=== PATIENT | male | born 1970 | race Caucasian/White ===

== ENCOUNTER → 2020-07-24 | Outpatient (CLI) | payer BC ==
[~2020-07-24] MED LIST: NAPR1TAB21 PO
[2020-07-24 08:43] LABS: BASOPHILS % (AUTO) 1 % (0-1); EOSINOPHILS % (AUTO) 4 % (1-7); LYMPHOCYTES % (AUTO) 39 % (22-44); MD NO; MEAN CORPUSCULAR HEMOGLOBIN 31.1 pg (27.5-34.5); MEAN PLATELET VOLUME 8.2 fL (7.4-10.4); MONOCYTES % (AUTO) 6 % (2-9); NEUTROPHILS % (AUTO) 50 % (42-75); PLATELET COUNT 290 x10^3/uL (130-400); RED BLOOD COUNT 5.23 x10^6/uL (4.38-5.82); RED CELL DISTRIBUTION WIDTH 14.3 % (9.4-14.8)
[2020-07-24 08:45] LABS: ANION GAP 5 mmol/L (5-15); CALCIUM 8.9 mg/dL (8.5-10.1); CHLORIDE 105 mmol/L (98-107); CREATININE 0.86 mg/dL (0.7-1.3)
[2020-07-24 08:48] LABS: PROTHROMBIN TIME 10.7 Seconds (9.6-11.5)
[2020-07-24 08:57] LABS: MICROSCOPIC NOT IND
== END | disposition home or self-care (01) ==
LOC: STAR 07:10
PROVIDERS: ATTEND Orthopaedic Surgery
DX: Z01.818 Encounter for other preprocedural examination (principal); M47.817 Spondylosis without myelopathy or radiculopathy, lumbosacral region; R94.31 Abnormal electrocardiogram [ECG] [EKG]; Z20.822 Contact with and (suspected) exposure to COVID-19
CPT/HCPCS: 36415; 71046; 80048; 81003; 82306; 85025; 85610; 85730; 93005; U0003; U0005

== ENCOUNTER 2020-07-30 06:34 | Observation (INO) | payer BC, OTHER ==
[~2020-07-30] VITALS: Ht 175.3 cm; Wt 86.3 kg
[~2020-07-30 06:34] MED LIST changes: +BACITRACIN 50,000 UNIT ONE; +BACITRACIN OINT 500U/GM, 15 GM ONE; +BUPIVACAINE/PF 0.5% ONE; +EPINEPHRINE 1 MG/ML, 1ML ONE; +VANCOMYCIN 1,000 MG ONE
[2020-07-30 07:16] VITALS: BP 132/92
[2020-07-30] MEDS ORDERED: CHLORHEXIDINE 15 ML UDC PO ONE (07:30)
[2020-07-30] MEDS ORDERED: CEFAZOLIN PMX 1GM/50ML 50 ML IV ONE (07:30)
[2020-07-30] MEDS ORDERED: LACTATED RINGERS 1,000 ML IV SCH (07:30)
[2020-07-30] MEDS ORDERED: MIDAZOLAM 1 MG/ML, 2ML ONE (09:26)
[2020-07-30] MEDS ORDERED: FENTANYL PF 250 MCG/5ML ONE (09:26)
[2020-07-30] MEDS ORDERED: TRANEXAMIC ACID 100 MG/ML, 10ML ONE (09:54)
[2020-07-30] MEDS ORDERED: BACITRACIN 50,000 UNIT IRRIG ONE (11:30)
[2020-07-30] MEDS ORDERED: BUPIVACAINE/PF-EPI 0.5% 1:200K INFIL ONE (11:30)
[2020-07-30] MEDS ORDERED: BACITRACIN OINT 500U/GM, 15 GM TP ONE (11:31)
[2020-07-30] MEDS ORDERED: HEPARIN 1,000 UNITS/ML, 30ML ONE (12:34)
[2020-07-30] MEDS ORDERED: hydrALAzine 20 MG/ML, 1ML IV PRN (14:30)
[2020-07-30] MEDS ORDERED: KETOROLAC 30 MG/1 ML IV PRN (14:30)
[2020-07-30] MEDS ORDERED: PROMETHAZINE 25 MG/ML, 1ML IV PRN (14:30)
[2020-07-30] MEDS ORDERED: DIAZEPAM 5 MG/ML, 2ML IVPush PRN (14:30)
[2020-07-30] MEDS ORDERED: ACETAMINOPHEN 325 MG TABLET PO PRN (14:30)
[2020-07-30] MEDS ORDERED: LABETALOL 5MG/ML, 20ML IV PRN ×2 (14:30→19:00)
[2020-07-30] MEDS ORDERED: OXYcodone 5 MG/5 ML ORAL.SOL UDC PO PRN (14:30)
[2020-07-30] MEDS ORDERED: ALBUTEROL SULFATE 2.5 MG/3 ML NPPB PRN (14:30)
[2020-07-30] MEDS ORDERED: FENTANYL PF 100 MCG/2ML IV PRN (14:30)
[2020-07-30] MEDS ORDERED: MEPERIDINE/PF 25MG/0.5ML IVPush PRN (14:30)
[2020-07-30] MEDS ORDERED: HYDROmorphone 1 MG/ML, 1ML INJ ONE ×2 (15:06→16:28)
[2020-07-30] MEDS ORDERED: OXYcodone 5 MG/5 ML ORAL.SOL UDC ONE (16:28)
[2020-07-30] MEDS ORDERED: CYCLOBENZAPRINE 10 MG TABLET ONE (16:28)
[2020-07-30] MEDS ORDERED: ROCURONIUM 10MG/ML,5ML ONE (16:29)
[2020-07-30] MEDS ORDERED: DEXAMETHASONE 4 MG/ML, 1ML ONE (16:29)
[2020-07-30] MEDS ORDERED: GLYCOPYRROLATE 0.2MG/1ML, 5ML ONE (16:29)
[2020-07-30] MEDS ORDERED: DIAZEPAM 5 MG/ML, 2ML ONE (16:29)
[2020-07-30] MEDS ORDERED: ONDANSETRON 2MG/ML, 2ML ONE (16:29)
[2020-07-30] MEDS ORDERED: CEFAZOLIN 1,000 MG ONE (16:29)
[2020-07-30] MEDS ORDERED: PROPOFOL 10 MG/ML, 20ML ONE (16:29)
[2020-07-30] MEDS ORDERED: NEOSTIGMINE 1 MG/ML, 10ML ONE (16:29)
[2020-07-30] MEDS ORDERED: SUCCINYLCHOLINE 20 MG/ML, 10ML ONE (16:29)
[2020-07-30] MEDS: HYDROmorphone 2 MG/ML, 1ML IVPush PRN ×2 (16:35→17:00)
[2020-07-30] MEDS: CYCLOBENZAPRINE 10 MG TABLET PO PRN (16:40)
[2020-07-30 18:30] VITALS: BP 123/86
[2020-07-30] MEDS ORDERED: HYDROcodone/APAP 5/325 TABLET PO PRN (19:00)
[2020-07-30] MEDS ORDERED: MAGNESIUM HYDROXIDE 8%, 30ML UDC PO PRN (19:00)
[2020-07-30] MEDS ORDERED: HYDROmorphone 2 MG/ML, 1ML IVPush PRN (19:00)
[2020-07-30] MEDS: LABETALOL 5MG/ML, 20ML IV SCH (19:00)
[2020-07-30] MEDS ORDERED: ACETAMINOPHEN 500 MG TABLET PO PRN (19:00)
[2020-07-30] MEDS ORDERED: PROMETHAZINE 25 MG/ML, 1ML IM PRN (19:00)
[2020-07-30] MEDS ORDERED: HYDROmorphone 2MG TABLET PO PRN (19:00)
[2020-07-30] MEDS ORDERED: BISACODYL 10 MG SUPP PR PRN (19:00)
[2020-07-30] MEDS ORDERED: ONDANSETRON 2MG/ML, 2ML IV PRN (19:00)
[2020-07-30] MEDS ORDERED: DIPHENHYDRAMINE 50 MG/ML, 1ML IVPush PRN (19:00)
[2020-07-30] MEDS ORDERED: DIPHENHYDRAMINE 50 MG/ML, 1ML IM PRN (19:00)
[2020-07-30] MEDS ORDERED: ACETAMINOPHEN 650 MG SUPP PR PRN (19:00)
[2020-07-30] MEDS ORDERED: SODIUM CHLORIDE 0.9% 1,000ML IV PRN (19:00)
[2020-07-30] MEDS ORDERED: DIPHENHYDRAMINE 25 MG CAPSULE PO PRN (19:00)
[2020-07-30] MEDS ORDERED: HYDROmorphone 2 MG/ML, 1ML IM PRN (19:00)
[2020-07-31] MEDS: CEFAZOLIN PMX 1GM/50ML 50 ML IVPB SCH ×2 (00:12→08:30)
[2020-07-31] MEDS: NS + 20MEQ KCL 1,000 ML IV SCH ×3 (00:12→22:00)
[2020-07-31] MEDS: LABETALOL 5MG/ML, 20ML IV SCH ×3 (03:00→17:56)
[2020-07-31 03:49] VITALS: BP 95/57
[2020-07-31 05:30] LABS: BASOPHILS % (AUTO) 0 % (0-1); EOSINOPHILS % (AUTO) 0 % (1-7); LYMPHOCYTES % (AUTO) 11 % (22-44); MEAN CORPUSCULAR HEMOGLOBIN 31.6 pg (27.5-34.5); MEAN CORPUSCULAR HGB CONC 34.6 g/dL (33.2-36.2); MEAN PLATELET VOLUME 8.2 fL (7.4-10.4); MONOCYTES % (AUTO) 8 % (2-9); NEUTROPHILS % (AUTO) 81 % (42-75); PLATELET COUNT 225 x10^3/uL (130-400); RED BLOOD COUNT 3.69 x10^6/uL (4.38-5.82); RED CELL DISTRIBUTION WIDTH 13.7 % (9.4-14.8)
[2020-07-31 05:41] LABS: ANION GAP 5 mmol/L (5-15); CALCIUM 7.9 mg/dL (8.5-10.1); CHLORIDE 108 mmol/L (98-107)
[2020-07-31 05:42] LABS: CREATININE 0.82 mg/dL (0.7-1.3)
[2020-07-31 07:11] VITALS: BP 91/55
[2020-07-31] MEDS: SENNA/DOCUSATE TABLET PO SCH (08:27)
[2020-07-31] MEDS: OXYcodone IR 5MG TABLET PO PRN ×4 (08:27→23:30)
[2020-07-31 14:59] VITALS: BP 95/63
[2020-07-31] MEDS: HEPARIN 5,000 UNITS/ML, 1ML SQ SCH (17:00)
[2020-07-31] MEDS ORDERED: ACET-1600 PO (17:17)
[2020-07-31] MEDS ORDERED: CYCL10TA2 PO (17:17)
[2020-07-31] MEDS ORDERED: ONDA4TAB7 PO (17:17)
[2020-07-31] MEDS ORDERED: OXYC5TAB98 PO (17:17)
[2020-07-31] MEDS ORDERED: SENN-211 PO (17:17)
[2020-07-31 19:00] VITALS: BP 97/56
[2020-07-31] MEDS: CYCLOBENZAPRINE 10 MG TABLET PO PRN (22:30)
[2020-08-01 00:46] VITALS: BP 122/82
[2020-08-01] MEDS: HEPARIN 5,000 UNITS/ML, 1ML SQ SCH ×2 (00:54→09:45)
[2020-08-01] MEDS: LABETALOL 5MG/ML, 20ML IV SCH ×2 (03:00→11:00)
[2020-08-01 04:56] LABS: BASOPHILS % (AUTO) 0 % (0-1); EOSINOPHILS % (AUTO) 1 % (1-7); LYMPHOCYTES % (AUTO) 28 % (22-44); MEAN CORPUSCULAR HEMOGLOBIN 31.8 pg (27.5-34.5); MEAN CORPUSCULAR HGB CONC 34.7 g/dL (33.2-36.2); MEAN PLATELET VOLUME 8.2 fL (7.4-10.4); MONOCYTES % (AUTO) 8 % (2-9); NEUTROPHILS % (AUTO) 63 % (42-75); PLATELET COUNT 181 x10^3/uL (130-400); RED CELL DISTRIBUTION WIDTH 13.6 % (9.4-14.8)
[2020-08-01 05:02] LABS: CALCIUM 7.3 mg/dL (8.5-10.1); CREATININE 0.74 mg/dL (0.7-1.3)
[2020-08-01 05:24] LABS: ANION GAP 4 mmol/L (5-15); CHLORIDE 110 mmol/L (98-107)
[2020-08-01] MEDS: OXYcodone IR 5MG TABLET PO PRN ×3 (06:04→12:46)
[2020-08-01] MEDS: CYCLOBENZAPRINE 10 MG TABLET PO PRN (06:04)
[2020-08-01 07:36] VITALS: BP 97/58
[2020-08-01] MEDS: NS + 20MEQ KCL 1,000 ML IV SCH (08:00)
[2020-08-01] MEDS: SENNA/DOCUSATE TABLET PO SCH (09:57)
== END 2020-08-01 13:39 | disposition home or self-care (01) ==
LOC: OUT 06:34 → 4NE 18:24 → INTOOBSV 18:31 → OUT 20:07 → DCLOUNGE 08-01 13:33
PROVIDERS: ADMIT Orthopaedic Surgery; ATTEND Orthopaedic Surgery
DX: M48.061 Spinal stenosis, lumbar region without neurogenic claudication (principal); M54.16 Radiculopathy, lumbar region; Z79.899 Other long term (current) drug therapy
CPT/HCPCS: 20680; 20936; 22633; 22840; 36415; 72100; 80048; 85025; 86850; 86900; 95938; 95941; 96361; 96365; 96366; 96372; 97116; 97162; 97166; 97530; C1713; C1729; C1762; C1776; C1781; G0378; J0171; J0330; J0690; J1100; J1170; J1644; J2250; J2405; J2704; J2710; J3010; J3370; J3480; J7120; S0020